=== PATIENT | female | born 1980 | race Native Hawaiian/Other Pacific Islander ===

== ENCOUNTER 2019-10-23 08:05 | Outpatient (CLI) | payer OTHER ==
[2019-10-23 09:28] LABS: POTASSIUM 4.9 mmol/L (3.6-5.2)
[2019-10-23 13:34] LABS: PLATELET COUNT 286 K/uL (152-353)
== END 2019-10-23 22:26 | disposition home or self-care (01) ==
LOC: CT 08:05
PROVIDERS: Nurse Practitioner Family
DX: R10.2 Pelvic and perineal pain (principal); E78.49 Other hyperlipidemia; R53.83 Other fatigue; Z79.899 Other long term (current) drug therapy
CPT/HCPCS: 36415; 80053; 80061; 84436; 84439; 84443; 84479; 84480; 85027

== ENCOUNTER 2020-08-04 08:08 | Outpatient (CLI) | payer OTHER ==
[2020-08-04 12:43] LABS: PLATELET COUNT 247 K/uL (152-353)
[2020-08-04 13:27] LABS: POTASSIUM 4.1 mmol/L (3.6-5.2)
== END 2020-08-04 22:30 | disposition home or self-care (01) ==
LOC: CT 08:08 → MAMMO 09:00 → CT 22:30
PROVIDERS: ATTEND Nurse Practitioner Family
DX: Z12.31 Encounter for screening mammogram for malignant neoplasm of breast (principal); I10 Essential (primary) hypertension; M06.4 Inflammatory polyarthropathy; R53.83 Other fatigue
CPT/HCPCS: 36415; 80053; 85027; 85651; 86140; Q9963

== ENCOUNTER 2020-08-08 12:43 | Outpatient (CLI) | payer OTHER | END 2020-08-08 18:55 | disposition home or self-care (01) | LOC: LABW 12:43 | PROVIDERS: ATTEND Nurse Practitioner Family | DX: S31.101A Unspecified open wound of abdominal wall, left upper quadrant without penetration into peritoneal cavity, initial encounter (principal) | CPT/HCPCS: 87070; 87077; 87185; 87186; 87205 ==

== ENCOUNTER 2020-10-10 11:00 | Outpatient (CLI) | payer OTHER ==
[2020-10-10 11:11] LABS: PLATELET COUNT 281 K/uL (152-353)
== END 2020-10-10 19:09 | disposition home or self-care (01) ==
LOC: LABW 11:00
PROVIDERS: ATTEND Plastic Surgery
DX: Z01.812 Encounter for preprocedural laboratory examination (principal)
CPT/HCPCS: 36415; 80048; 85027

== ENCOUNTER 2021-11-03 14:57 | Outpatient (CLI) | payer BC, OTHER ==
[2021-11-03 15:34] LABS: POTASSIUM 3.9 mmol/L (3.6-5.2)
== END 2021-11-03 19:36 | disposition home or self-care (01) ==
LOC: CT 14:57
PROVIDERS: ATTEND Nurse Practitioner Family
DX: R10.11 Right upper quadrant pain (principal); R10.31 Right lower quadrant pain; K43.2 Incisional hernia without obstruction or gangrene
CPT/HCPCS: 36415; 80053; Q9963